=== PATIENT | female | born 1990 | race Two or more races ===

== ENCOUNTER 2023-11-04 03:27 | Inpatient (IN) | payer OTHER ==
[~2023-11-04] VITALS: Ht 165.1 cm; Wt 97.5 kg
[~2023-11-04 03:27] MED LIST: PRENA1 CHEW TA1.4 MG
[2023-11-04] MEDS ORDERED: PRENATAL TABLE1 EAC4 PO (03:42)
[2023-11-04] MEDS ORDERED: RINGERS SOLUTION,LACTATED 1,000 ML IV SCH (10:15)
[2023-11-04] MEDS ORDERED: MORPHINE SULFATE 4 MG/ML VIAL IV PRN (10:15)
[2023-11-04] MEDS ORDERED: MORPHINE SULFATE 4 MG/ML CARTRIDGE IV PRN (11:15)
[2023-11-04] MEDS ORDERED: CEFAZOLIN SODIUM 1,000 MG VIAL IV SCH (12:15)
[2023-11-04] MEDS ORDERED: CITRIC ACID/SODIUM CITRATE 30 ML BLIST.PACK PO NR (12:15)
[2023-11-04 12:18] LABS: HEMATOCRIT 40.2 % (36.0-45.00); HEMOGLOBIN 13.4 g/dL (12.0-15.00); MEAN CELL VOLUME 84.1 fL (80.00-100.00); MEAN CORPUSCULAR HEMOGLOBIN 28.1 pg (27.00-32.0); MEAN CORPUSCULAR HGB CONC 33.4 g/dl (32.0-36.0); PLATELET COUNT 236 K/uL (150-450); RED BLOOD COUNT 4.78 M/uL (4.00-6.00); RED CELL DISTRIBUTION WIDTH 15.1 % (11.5-14.5)
[2023-11-04 12:41] LABS: INR < 0.93; PARTIAL THROMBOPLASTIN TIME 27.6 SECONDS (22.0-34.0)
[2023-11-04 12:42] LABS: PROTHROMBIN TIME 9.7 SECONDS (9.0-11.5)
[2023-11-04 12:46] LABS: BILIRUBIN TOTAL 0.29 mg/dL (0.3-1.2); CALCIUM 9.3 mg/dL (8.5-10.1); CREATININE SERUM 0.48 mg/dL (0.55-1.02); GFR 150.85; GLOBULINA 4.2 G/DL (2.4-3.5); POTASSIUM 4.34 mEq/L (3.5-5.1); TOTAL PROTEIN 7.2 gm/dL (6.4-8.2)
[2023-11-04] MEDS ORDERED: ERYTHROMYCIN BASE 1 GM TUBE OP ONE (14:15)
[2023-11-04] MEDS ORDERED: OXYTOCIN 10 UNITS/ML VIAL IV ONE (14:15)
[2023-11-04] MEDS ORDERED: KETOROLAC TROMETHAMINE 30 MG VIAL IV SCH (18:00)
[2023-11-04] MEDS ORDERED: MORPHINE SULFATE 4 MG/ML VIAL IV SCH (18:37)
[2023-11-04] MEDS ORDERED: OXYTOCIN 1,000 ML IV ONE (18:45)
[2023-11-05] MEDS ORDERED: ACETAMINOPHEN 500 MG GEL..CAP PO SCH (06:00)
[2023-11-05 08:04] LABS: HEMATOCRIT 35.2 % (36.0-45.00); HEMOGLOBIN 12.1 g/dL (12.0-15.00); MEAN CELL VOLUME 85.3 fL (80.00-100.00); MEAN CORPUSCULAR HEMOGLOBIN 29.3 pg (27.00-32.0); MEAN CORPUSCULAR HGB CONC 34.3 g/dl (32.0-36.0); PLATELET COUNT 174 K/uL (150-450); RED BLOOD COUNT 4.12 M/uL (4.00-6.00); RED CELL DISTRIBUTION WIDTH 14.7 % (11.5-14.5)
[2023-11-05] MEDS ORDERED: PNV,CALCIUM 72/IRON/FOLIC ACID 1 TAB TABLET PO SCH (09:00)
[2023-11-05] MEDS ORDERED: DOCUSATE SODIUM 100MG CAP PO SCH (09:00)
[2023-11-05] MEDS ORDERED: SIMETHICONE 125 MG CAPSULE PO SCH (09:00)
[2023-11-05] MEDS ORDERED: GABAPENTIN 300 MG CAPSULE PO SCH (09:00)
[2023-11-05] MEDS ORDERED: IBUprofen 600 MG TABLET PO SCH (12:00)
== END 2023-11-06 11:00 | disposition home or self-care (01) | DRG 788 ==
LOC: OBS/DEL 03:27 → LDR 11:45 → OB/GYN 14:10
PROVIDERS: ADMIT Obstetrics & Gynecology Gynecology; ATTEND Obstetrics & Gynecology Gynecology
PROC: 4A1HXCZ Monitoring of Products of Conception, Cardiac Rate, External Approach (ICD-10-PCS; 2023-11-04)
PROC: 10D00Z1 Extraction of Products of Conception, Low, Open Approach (ICD-10-PCS; principal; 2023-11-04 12:00)
DX: O82 Encounter for cesarean delivery without indication (principal); Z3A.38 38 weeks gestation of pregnancy; Z37.0 Single live birth; Z20.822 Contact with and (suspected) exposure to COVID-19